=== PATIENT | male | born 1980 | race Caucasian/White ===

== ENCOUNTER → 2019-12-01 09:47 | Outpatient (BNVA) | payer SELFPAY | PROVIDERS: Family Provider Family Medicine; Visit Provider Family Medicine | DX: N30.00 Acute cystitis without hematuria (principal); R35.0 Frequency of micturition; R30.0 Dysuria | CPT/HCPCS: 80053; 81000 ==

== ENCOUNTER → 2020-07-29 11:34 | Outpatient (BNVA) | payer OTHER, SELFPAY | PROVIDERS: Family Provider Family Medicine; Visit Provider Nurse Practitioner Family | DX: J06.9 Acute upper respiratory infection, unspecified (principal); Z20.828 Contact with and (suspected) exposure to other viral communicable diseases | CPT/HCPCS: 87635 ==